=== PATIENT | male | born 1950 | race African-American/Black ===

== ENCOUNTER 2020-05-10 15:29 | IRF | payer MEDICARE, SELFPAY ==
[2020-05-10 15:30] VITALS: BP 135/77; PULSE 98; RESP 20; TEMP 36.6; O2SAT 96; BMI 20.9
--- NOTE | 2020-05-10 15:44 | ADMGEN ---
This patient, Taz Alicia, was admitted to [facility] Room 220-02 at 1530 via ambulance. Patient/family oriented to hospital policies and general routines including ID bracelet, bed and alarms, visiting hours, pain management, procedures, bathroom and other care routines, personal items, smoking policy, room service/diet, and visiting hours. Valuables list has been completed. Information on how to activate the Rapid Response Team has been discussed. Patient/Family are encouraged to report perceived risks to care and to ask questions if they do not understand what they are told or what they should do.
[2020-05-10 16:31] VITALS: BMI 20.9
[2020-05-10] MEDS: hydrALAZINE HCL 50 MG TABLET PO (17:48)
[2020-05-10] MEDS: FLUTICASONE PROP 110 MCG INHALER 12 GM (*SP) 2 PUFF INHALATION (18:33)
[2020-05-10 18:34] VITALS: O2SAT 99
[2020-05-10] MEDS: ALBUTEROL SULFATE (*SP) AEROSOL 1 PUFF 2 PUFF INHALATION (18:34)
[2020-05-10] MEDS: DOCUSATE SODIUM 100 MG CAPSULE PO (20:56)
[2020-05-10] MEDS: levETIRAcetam 500 MG TABLET 1000 MG PO (20:56)
[2020-05-10] MEDS: risperiDONE 0.5 MG TABLET PO (20:57)
[2020-05-10] MEDS: SIMVASTATIN 20 MG TABLET 40 MG PO (20:57)
[2020-05-10] MEDS: BRIMONIDINE TARTRATE 0.2% OP SOLN 5 ML BTL 2 DROP EACH EYE (20:58)
[2020-05-10] MEDS: MEGESTROL ACETATE (*CHEMO) 40 MG TABLET PO (20:59)
[2020-05-10] MEDS: PHENYTOIN SODIUM 100 MG CAP PO (21:00)
[2020-05-10] MEDS: GABAPENTIN 300 MG CAPSULE PO (21:00)
[2020-05-10 22:00] VITALS: BP 120/72; PULSE 96; RESP 17; TEMP 36.8; O2SAT 99
[2020-05-11 04:38] LABS: Basophils Absolute Auto 0.1 K/mm3 (0.0-0.1); Eosinophils Absolute Auto 0.2 K/mm3 (0-0.3); Eosinophils Percent Auto 3.6 % (0-4.4); Hematocrit 31.8 % (42.0-52.0); Hemoglobin 9.8 g/dL (14.0-18.0); Immature Granulocyte Absolute 0.02 K/mm3 (0.00-0.031); Immature Granulocyte Percent A 0.4 % (0-0.5); Lymphocytes Absolute Auto 1.72 K/mm3 (0.9-3.2); Lymphocytes Percent Auto 36.1 % (18.3-44.2); Mean Corpuscular HGB Conc 30.8 g/dl (32-36); Mean Corpuscular Hemoglobin 28.3 pg (26-34); Mean Corpuscular Volume 91.9 fl (80-100); Mean Platelet Volume 9.9 fl (7.4-10.4); Monocytes Absolute Auto 0.9 K/mm3 (0.1-0.6); Monocytes Percent Auto 19.5 % (2.6-8.5); Neutrophils Absolute Auto 1.9 K/mm3 (1.3-6.7); Neutrophils Percent Auto 39.4 % (45.5-73.1); Platelet Count Result 254 k/mm3 (150-375); Red Blood Count 3.46 M/mm3 (4.6-6.20); Red Cell Distribution Width 15.7 % (11.5-14.5); White Blood Count 4.8 K/mm3 (4.5-10.0)
[2020-05-11 05:04] LABS: Anion Gap 8.9 mmol/L (7-16); Blood Urea Nitrogen 16 mg/dL (9-20); Calcium 9.1 mg/dL (8.4-10.2); Carbon Dioxide 28 mmol/L (22-30); Chloride 104 mmol/L (98-107); Estimated CRCL calculation 76 ml/min; Estimated Glomerular Filt Rate > 60; Glucose 102 mg/dL (75-110); Potassium 3.9 mmol/L (3.4-5.0); Sodium 137 mmol/L (137-145)
[2020-05-11] MEDS: PHENYTOIN SODIUM 100 MG CAP PO ×3 (05:26→21:05)
[2020-05-11] MEDS: GABAPENTIN 300 MG CAPSULE PO ×3 (05:26→21:05)
[2020-05-11] MEDS: BRIMONIDINE TARTRATE 0.2% OP SOLN 5 ML BTL 2 DROP EACH EYE ×3 (05:26→21:06)
[2020-05-11 06:00] VITALS: BP 147/73; PULSE 96; RESP 18; TEMP 36.4; O2SAT 100
[2020-05-11] MEDS: ALBUTEROL SULFATE (*SP) AEROSOL 1 PUFF 2 PUFF INHALATION ×3 (07:27→21:30)
[2020-05-11] MEDS: FLUTICASONE PROP 110 MCG INHALER 12 GM (*SP) 2 PUFF INHALATION ×2 (07:27→21:30)
[2020-05-11 07:28] VITALS: PULSE 107; RESP 20; O2SAT 96
--- NOTE | 2020-05-11 10:15 | PCOTNOTE ---
Initiated OT evaluation, but unable to complete entirely at this time. Will complete later today.
[2020-05-11] MEDS: hydrALAZINE HCL 50 MG TABLET PO ×2 (10:16→17:34)
[2020-05-11] MEDS: FINASTERIDE 5 MG TABLET PO (10:16)
[2020-05-11] MEDS: FOLIC ACID 1 MG TABLET PO (10:17)
[2020-05-11] MEDS: hydroCHLOROthiazide 12.5 MG CAPSULE PO (10:17)
[2020-05-11] MEDS: levETIRAcetam 500 MG TABLET 1000 MG PO ×2 (10:17→21:05)
[2020-05-11] MEDS: LOSARTAN POTASSIUM 100 MG TABLET PO (10:18)
[2020-05-11] MEDS: MEGESTROL ACETATE (*CHEMO) 40 MG TABLET PO ×2 (10:18→21:05)
[2020-05-11] MEDS: risperiDONE 0.5 MG TABLET PO ×2 (10:18→21:05)
[2020-05-11] MEDS: TAMSULOSIN HCL 0.4 MG CAPSULE PO (10:18)
--- NOTE | 2020-05-11 11:30 | WPDREHABHP ---
H&P: HPI History of Present Illness Date/Time: 05/11/20 14:18 Chief complaint: Critical Illness Myopathy Narrative: Taz Alicia is a 69 year old male HISTORY OF PRESENT ILLNESS: he is left handed The patient's primary rehab impairment category is 0 6-neurological condition. The etiologic diagnosis is Critical illness myopathy of severe degree I saw this patient [id number] on May 11, 2020 at 11:30 a.m. The patient is a 69-year-old left-handed male with a past medical history of hypertension, hyperlipidemia, atrial fibrillation, and stage IV chronic obstructive pulmonary disease who initially presented to [facility] on April 11, 2020 after slipping and falling out of the bed. Patient denied any loss of consciousness. The evaluation revealed the left femoral neck fracture. He was admitted and orthopedic surgery was consulted. The patient underwent a left proximal femur hemiarthroplasty on April 12, 2020. Postoperatively the patient experienced acute respiratory failure, worsening mental status, leukocytosis, acute renal failure, hypernatremia, pneumonia and the postoperative ileus with worsening abdominal Distension. The patient was moved to ICU for 7 days and was on a ventilator for 3 days. Gastroenterology was consulted and ordered a CT of the head and CT of the abdomen with IV contrast. An NG tube was placed, repeat CT showed a persistent ileus and the patient's white count started to raise. The patient was placed on antibiotics. The ileus eventually converted to a small-bowel obstruction and general surgery was consulted. The patient underwent exploratory laparotomy on April 19, 2020 with lysis of adhesions. He was placed on TPN and his diet was advanced slowly. He is now tolerating a regular diet with oral liquid supplements. Pulmonology was consulted for acute respiratory failure in the setting of stage IV COPD. The patient is currently saturating at 95% on 2 liters of nasal cannula and is on duo nebulizer treatment every 6 hours. Incentive spirometry every hour while awake. He completed IV antibiotics for pneumonia and it is resolved. He is stable from a pulmonology standpoint. Nephrology was consulted for the acute renal failure and that was resolved on May 04, 2020. The patient has been slow to recover from his critical illness but is making progress and will require significant PT OT and speech and language evaluation to return to prior level of independent functioning. His mental status has continued to improve when is now alert and awake x3 the patient will be discharged to rehab on Lovenox for DVT prophylaxis. The patient has not traveled outside the [place] or had contact with someone who is ill that has travel outside the [place] in the past 21 days. The patient has not traveled to with an area of the [place] that is experiencing no transmission of the Coronavirus and has not had close personal contact with anyone that has. The patient does not have a fever. The patient is not experiencing any new lower respiratory illness symptoms. The patient has COPD at baseline and gets breathing treatment twice a day at home. Therapy was initiated at the acute care facility and the patient transferred to us from [facility] on May 10, 2020 on FALLS OR SURGERIES: The patient has had major surgeries in the 100 days prior to admission. They had falls in the past year. They had falls with injury in the past year. PAST MEDICAL HISTORY: [id number], atrial fibrillation, hyperlipidemia, hypertension, chronic obstructive pulmonary disease, stroke with residual left-sided weakness, seizures since 2007, anxiety PAST SURGICAL HISTORY: recent hip surgery during this acute hospitalization in early part of April SOCIAL HISTORY: the patient lives with the family in a 3 story home with finished basement. This bathroom on the main floor only. There are 2 steps to enter the house and 8 steps to the
[2020-05-11 12:56] VITALS: BMI 20.9
--- NOTE | 2020-05-11 13:31 | PCOTNOTE ---
Attempted to complete OT evaluation, but patient requesting therapist to come back later due to fatigue. Will attempt again later.
--- NOTE | 2020-05-11 13:56 | PCCCNOTE ---
On 05/11/20, the student, [John Suero ], provided care and completed [facility] documentation on this patient. I have reviewed the student's documentation and agree with the findings.
[2020-05-11 14:00] VITALS: BP 109/68; PULSE 108; RESP 20; TEMP 36.6; O2SAT 98
[2020-05-11] MEDS: THIAMINE HCL 100 MG TABLET PO (14:52)
[2020-05-11] MEDS: ENOXAPARIN 40 MG/0.4 ML SYRINGE SUB-Q (15:41)
--- NOTE | 2020-05-11 17:27 | RPD ---
INDIVIDUALIZED PLAN OF CARE FOR Taz Alicia Brief Synthesis of Pre-Admission Screen, Post-Admission Evaluation and Therapy Evaluations: The patient presents to rehab with Critical illness myopathy. Comorbidities include left hip fracture status post hemiarthroplasty, postoperative ileus, small bowel obstruction, status post exploratory lapartotomy with lysis of adhesions, leukocytosis, acute respiratory failure requiring mechanical ventilation, chronic obstructive pulmonary disease with exacerbation, nausea, vomiting, seizure disorder, uncontrolled hypertension, hypernatremia, acute renal failure, and pneumonia. The complexity of the patient's medical management, nursing, and therapy needs require an inpatient rehab hospital stay with a physician-led interdisciplinary team approach. The patient?s needs will be best met in an intensive program vs. at a lower level of care. The patient requires physician services for medical oversight, management of post-op complications of SBO, postoperative ileus, leukocytosis, pneumonia, hypernatremia, uncontrolled hypertension, acute mental status changes, acute respiratory failure, COPD exacerbation, and acute renal failure in setting of present comorbidities, and pain management. The patient requires nursing services for anticoagulation therapy, DVT prophylactics, infection protection, medication management and education, pressure relief, and wound care. Deficits include:ADLs, Balance, Cognition, Endurance, Family Training/Education, Mobility, Pain Management, ROM, Safety, Strength, Transfers, and Speech. Salad Bar Clerk/Case Management for: Discharge Planning and Patient/Family Counseling Physical Therapy: 5 days per week for 75 minutes. Treatments may include: Therapeutic Exercise, Gait Training, Neuromuscular Re-education, Transfer Training, Community Reintegration, Bed Mobility, Patient/Family Education, Wheelchair Mobility Group Therapy/Concurrent Therapy Rationales: -Improve attention span during functional activities in a distracted environment. -Enhance problem solving and/or adequate judgment skills during functional activities in a distracted environment. -Promote increased safety awareness in a distracted environment to reduce fall risk with functional tasks, transfers, and ambulation to allow a more safe, self-sufficient return to the home environment. -Improve dynamic balance skills to promote safety and independence with functional activities in a distracted environment for maximum gain. Occupational Therapy: 5 days per week for 75 minutes. Treatments may include: Therapeutic Exercise, Therapeutic Activity, Cognitive Training, Self-Care Transfer Training, Community Reintegration, Home Management, Patient/Family Education, Wheelchair Mobility Training, Energy Conservation Training Group Therapy/Concurrent Therapy Rationales: -Allow therapist to observe and teach generalization and carry-over of skills learned in individual therapy. -Enhance problem solving and sequencing skills during therapeutic activities in a distracted environment. -Promote increased safety awareness in a realistic setting to reduce fall risk with functional tasks due to visual and verbal distractions. -Increase functional level with ADLs, ADL transfers and use of adaptive equipment through therapeutic activities with others while promoting safety to allow a more safe, self-sufficient return home. Speech Therapy: 5 days per week for 30 minutes. Treatments may include: Dysphasia Therapy, Speech/Language/Communication Therapy, Cognitive Training, Patient/Family Education Group Therapy/Concurrent Therapy - Rationale: -Allow therapist to observe and teach generalization and carry-over of skills learned in individual therapy. -Improve comprehension skills with complex or abstract ideas through discussion in a realistic setting. -Enhance problem solving skills with complex issues during activities in a distracted environment. -Promote increased me
[2020-05-11] MEDS: DOCUSATE SODIUM 100 MG CAPSULE PO (21:05)
[2020-05-11] MEDS: SIMVASTATIN 20 MG TABLET 40 MG PO (21:05)
[2020-05-11 21:34] VITALS: O2SAT 98
[2020-05-11 21:39] VITALS: BP 103/55; PULSE 107; RESP 18; TEMP 36.1; O2SAT 100
[2020-05-11 22:26] VITALS: O2SAT 96
[2020-05-12] VITALS (9 sets, daily range): BP systolic 91–116; BP diastolic 54–63; PULSE 105–117; RESP 18–24; TEMP 36.4–36.7; O2SAT 93–98
[2020-05-12] MEDS: ALBUTEROL SULFATE (*SP) AEROSOL 1 PUFF 2 PUFF INHALATION ×2 (01:16→08:48)
[2020-05-12] MEDS: PHENYTOIN SODIUM 100 MG CAP PO ×3 (05:50→21:03)
[2020-05-12] MEDS: GABAPENTIN 300 MG CAPSULE PO ×3 (05:54→21:03)
[2020-05-12] MEDS: BRIMONIDINE TARTRATE 0.2% OP SOLN 5 ML BTL 2 DROP EACH EYE ×3 (05:54→21:01)
[2020-05-12] MEDS: TAMSULOSIN HCL 0.4 MG CAPSULE PO (08:14)
[2020-05-12] MEDS: ENOXAPARIN 40 MG/0.4 ML SYRINGE SUB-Q (08:14)
[2020-05-12] MEDS: levETIRAcetam 500 MG TABLET 1000 MG PO ×2 (08:15→21:03)
[2020-05-12] MEDS: FOLIC ACID 1 MG TABLET PO (08:15)
[2020-05-12] MEDS: FINASTERIDE 5 MG TABLET PO (08:15)
[2020-05-12] MEDS: LOSARTAN POTASSIUM 100 MG TABLET PO (08:15)
[2020-05-12] MEDS: hydroCHLOROthiazide 12.5 MG CAPSULE PO (08:15)
[2020-05-12] MEDS: hydrALAZINE HCL 50 MG TABLET PO ×2 (08:15→17:30)
[2020-05-12] MEDS: MEGESTROL ACETATE (*CHEMO) 40 MG TABLET PO ×2 (08:16→21:03)
[2020-05-12] MEDS: THIAMINE HCL 100 MG TABLET PO (08:16)
[2020-05-12] MEDS: risperiDONE 0.5 MG TABLET PO ×2 (08:16→21:03)
[2020-05-12] MEDS: FLUTICASONE PROP 110 MCG INHALER 12 GM (*SP) 2 PUFF INHALATION ×2 (08:30→20:40)
[2020-05-12] MEDS: ALBUTEROL SULFATE NEB 2.5 MG/0.5 ML INH INHALATION ×2 (13:57→20:40)
[2020-05-12] MEDS: IPRATROPIUM BR 0.02% INH SOLN 0.5 MG/2.5 ML VIAL INHALATION (20:40)
[2020-05-12] MEDS: DOCUSATE SODIUM 100 MG CAPSULE PO (21:03)
[2020-05-12] MEDS: SIMVASTATIN 20 MG TABLET 40 MG PO (21:04)
[2020-05-13] VITALS (12 sets, daily range): BP systolic 86–102; BP diastolic 50–68; PULSE 95–110; RESP 18–22; TEMP 35.9–36.6; O2SAT 94–100
[2020-05-13] MEDS: IPRATROPIUM BR 0.02% INH SOLN 0.5 MG/2.5 ML VIAL INHALATION ×3 (02:58→13:51)
[2020-05-13] MEDS: ALBUTEROL SULFATE NEB 2.5 MG/0.5 ML INH INHALATION ×4 (02:58→20:27)
[2020-05-13] MEDS: GABAPENTIN 300 MG CAPSULE PO ×3 (05:31→20:32)
[2020-05-13] MEDS: PHENYTOIN SODIUM 100 MG CAP PO ×3 (05:31→20:32)
[2020-05-13] MEDS: BRIMONIDINE TARTRATE 0.2% OP SOLN 5 ML BTL 2 DROP EACH EYE ×3 (05:31→20:33)
[2020-05-13] MEDS: FLUTICASONE PROP 110 MCG INHALER 12 GM (*SP) 2 PUFF INHALATION ×2 (08:00→20:27)
[2020-05-13] MEDS: FOLIC ACID 1 MG TABLET PO (10:04)
[2020-05-13] MEDS: THIAMINE HCL 100 MG TABLET PO (10:04)
[2020-05-13] MEDS: hydrALAZINE HCL 50 MG TABLET PO (10:04)
[2020-05-13] MEDS: levETIRAcetam 500 MG TABLET 1000 MG PO ×2 (10:04→20:31)
[2020-05-13] MEDS: risperiDONE 0.5 MG TABLET PO ×2 (10:04→20:32)
[2020-05-13] MEDS: TAMSULOSIN HCL 0.4 MG CAPSULE PO (10:04)
[2020-05-13] MEDS: ENOXAPARIN 40 MG/0.4 ML SYRINGE SUB-Q (10:05)
[2020-05-13] MEDS: MEGESTROL ACETATE (*CHEMO) 40 MG TABLET PO ×2 (10:05→20:32)
[2020-05-13] MEDS: hydroCHLOROthiazide 12.5 MG CAPSULE PO (10:05)
[2020-05-13] MEDS: FINASTERIDE 5 MG TABLET PO (10:06)
[2020-05-13] MEDS: LOSARTAN POTASSIUM 100 MG TABLET PO (10:06)
--- NOTE | 2020-05-13 15:46 | PC.NURSE ---
Dr. De León is aware of B/P being low and advised to hold apresoline at dinnertime.
[2020-05-13] MEDS: DOCUSATE SODIUM 100 MG CAPSULE PO (20:31)
[2020-05-13] MEDS: SIMVASTATIN 20 MG TABLET 40 MG PO (20:31)
[2020-05-14] VITALS (14 sets, daily range): BP systolic 90–110; BP diastolic 54–65; PULSE 88–107; RESP 18–20; TEMP 36.2–37; O2SAT 91–100
[2020-05-14] MEDS: ALBUTEROL SULFATE NEB 2.5 MG/0.5 ML INH INHALATION ×4 (02:16→19:38)
[2020-05-14] MEDS: BRIMONIDINE TARTRATE 0.2% OP SOLN 5 ML BTL 2 DROP EACH EYE ×3 (05:58→21:06)
[2020-05-14] MEDS: GABAPENTIN 300 MG CAPSULE PO ×3 (05:59→21:07)
[2020-05-14] MEDS: PHENYTOIN SODIUM 100 MG CAP PO ×3 (05:59→21:07)
[2020-05-14] MEDS: levETIRAcetam 500 MG TABLET 1000 MG PO ×2 (08:48→21:07)
[2020-05-14] MEDS: MEGESTROL ACETATE (*CHEMO) 40 MG TABLET PO ×2 (08:48→21:07)
[2020-05-14] MEDS: FINASTERIDE 5 MG TABLET PO (08:48)
[2020-05-14] MEDS: FOLIC ACID 1 MG TABLET PO (08:48)
[2020-05-14] MEDS: ENOXAPARIN 40 MG/0.4 ML SYRINGE SUB-Q (08:48)
[2020-05-14] MEDS: LOSARTAN POTASSIUM 100 MG TABLET PO (08:48)
[2020-05-14] MEDS: hydroCHLOROthiazide 12.5 MG CAPSULE PO (08:49)
[2020-05-14] MEDS: risperiDONE 0.5 MG TABLET PO ×2 (08:49→21:07)
[2020-05-14] MEDS: hydrALAZINE HCL 50 MG TABLET PO ×2 (08:49→17:52)
[2020-05-14] MEDS: THIAMINE HCL 100 MG TABLET PO (08:50)
[2020-05-14] MEDS: TAMSULOSIN HCL 0.4 MG CAPSULE PO (08:50)
--- NOTE | 2020-05-14 11:08 | WPDNEURORHBP ---
Subjective Date/time seen: 05/13 11 am amairani Grubbs severe degree Review of Systems Review of Systems: All systems reviewed & are unremarkable except as noted in HPI and below Functional Status Ambulation Ability Ability to Ambulate 10 Feet: Minimum Assistance X 1 Ambulation Assistive Devices: Walker, Wheeled Transfers Ability Ability to Transfer In/Out of Chair: Maximum Assistance X 1 Exam Const: General: cooperative and no acute distress HENMT: Head: normal to inspection and normocephalic Ears: hearing grossly normal bilaterally and external ears normal General nose exam: Normal external nose present, Normal nares present, Normal nasal mucous membranes and turbinates present and No nasal discharge present Face and sinus: normal facial exam Mouth: Yes Normal oral and palatal mucosa present Eyes: General: appearance normal, both eyes and all related structures Neck: Neck: full ROM and no JVD Thyroid: thyroid normal Resp: Effort & Inspection: normal respiratory effort Auscultation: clear to auscultation bilaterally Cardio: Rate: regular rate Rhythm: regular rhythm GI: Auscultation: normal bowel sounds Back/Spine/Pelvis: Back: no CVA tenderness Skin: General skin exam: no rashes or lesions noted Neuro: General: patient oriented x3, moves all extremities and CN's II-XI intact bilaterally Cranial nerves: Yes Equal, round and reactive pupils present, Yes Bilaterally intact EOM present, Yes Nystagmus not present, Yes Midline tongue present and Yes Ability to bilaterally elevate shoulders present Cognition (Neuro): normal cognition Speech: normal speech Motor exam (neuro): Abnormal motor strength present (proximal weekness > distal) Deep tendon reflexes (DTR's): Right triceps reflex intensity grade: 1+, Left triceps reflex intensity grade: 1+, Rt Biceps (C5, C6): 1+, Left biceps reflex intensity grade: 1+, Right brachioradialis reflex intensity grade: 1+, Left brachioradialis reflex intensity grade: 1+, Right patellar reflex intensity grade: 1+, Left patellar reflex intensity grade: 1+, Right ankle reflex intensity grade: 1+ and Left ankle reflex intensity grade: 1+ Plantar Reflex Responses: downgoing: bilateral Extrem: General: normal to inspection Psych: Appearance: grossly normal Objective Data Vital Signs Vital Signs: Vital Signs - 24 hr 05/13/20 13:52 05/13/20 13:59 05/13/20 14:00 Temperature 36.6 C Pulse Rate 95 96 108 H Respiratory Rate 20 20 20 Blood Pressure 86/56 L Pulse Oximetry 100 05/13/20 20:20 05/13/20 20:27 05/13/20 20:37 Temperature 36.6 C Pulse Rate 99 104 H 100 Respiratory Rate 18 18 18 Blood Pressure 91/50 L Pulse Oximetry 100 94 05/14/20 02:16 05/14/20 02:25 05/14/20 06:00 Temperature 37.0 C Pulse Rate 88 92 93 Respiratory Rate 18 18 18 Blood Pressure 110/58 L Pulse Oximetry 100 05/14/20 09:37 05/14/20 09:42 05/14/20 09:50 Temperature Pulse Rate 93 90 Respiratory Rate 20 20 Blood Pressure Pulse Oximetry 91 Intake/Output Intake/Output: Intake & Output 05/11/20 05/12/20 05/13/20 05/14/20 23:59 23:59 23:59 23:59 Intake Total 480 960 840 240 Balance 480 960 840 240 Meds/Results Medications: Active Medications Generic Name Dose Route Start Last Admin Trade Name Freq PRN Reason Stop Dose Admin Albuterol 2 puff 05/10/20 17:09 05/12/20 08:48 Proventil Hfa INHALATION 2 puff BID PRN Administration Shortness Of Breath Or Wheezing Albuterol 2.5 mg 05/12/20 14:00 05/14/20 09:37 Albuterol Sulf Neb 2.5mg/0.5ml INHALATION 2.5 mg Q6HRT HOWIE Administration Brimonidine Tartrate 2 drop 05/10/20 22:00 05/14/20 05:58 Alphagan 0.2% Op Soln EACH EYE 2 drop Q8HR HOWEI Administration Docusate Sodium 100 mg 05/10/20 21:00 05/13/20 20:31 Colace Capsule PO 100 mg HS HOWIE Administration Enoxaparin Sodium 40 mg 05/12/20 09:00 05/14/20 08:48 Lovenox SUB-Q 40 mg DAILY HOWIE Administration F
[2020-05-14] MEDS: FLUTICASONE PROP 110 MCG INHALER 12 GM (*SP) 2 PUFF INHALATION (19:43)
[2020-05-14] MEDS: SIMVASTATIN 20 MG TABLET 40 MG PO (21:07)
[2020-05-14] MEDS: DOCUSATE SODIUM 100 MG CAPSULE PO (21:07)
[2020-05-15] VITALS (9 sets, daily range): BP systolic 100–133; BP diastolic 63–79; PULSE 92–114; RESP 18–20; TEMP 35.5–36.9; O2SAT 92–100
[2020-05-15] MEDS: ALBUTEROL SULFATE NEB 2.5 MG/0.5 ML INH INHALATION ×3 (01:14→20:13)
[2020-05-15] MEDS: PHENYTOIN SODIUM 100 MG CAP PO ×3 (06:24→21:05)
[2020-05-15] MEDS: GABAPENTIN 300 MG CAPSULE PO ×3 (06:24→21:05)
[2020-05-15] MEDS: BRIMONIDINE TARTRATE 0.2% OP SOLN 5 ML BTL 2 DROP EACH EYE ×3 (06:24→21:05)
[2020-05-15] MEDS: SENNA/DOCUSATE SODIUM TABLET 2 TAB PO ×2 (09:50→21:05)
[2020-05-15] MEDS: hydrALAZINE HCL 50 MG TABLET PO ×2 (09:50→17:24)
[2020-05-15] MEDS: FINASTERIDE 5 MG TABLET PO (09:51)
[2020-05-15] MEDS: hydroCHLOROthiazide 12.5 MG CAPSULE PO (09:51)
[2020-05-15] MEDS: ENOXAPARIN 40 MG/0.4 ML SYRINGE SUB-Q (09:51)
[2020-05-15] MEDS: levETIRAcetam 500 MG TABLET 1000 MG PO ×2 (09:51→21:05)
[2020-05-15] MEDS: FOLIC ACID 1 MG TABLET PO (09:51)
[2020-05-15] MEDS: risperiDONE 0.5 MG TABLET PO ×2 (09:52→21:05)
[2020-05-15] MEDS: THIAMINE HCL 100 MG TABLET PO (09:52)
[2020-05-15] MEDS: TAMSULOSIN HCL 0.4 MG CAPSULE PO (09:52)
[2020-05-15] MEDS: LOSARTAN POTASSIUM 100 MG TABLET PO (09:52)
[2020-05-15] MEDS: MEGESTROL ACETATE (*CHEMO) 40 MG TABLET PO ×2 (09:52→21:05)
--- NOTE | 2020-05-15 12:15 | WPDNEURORHBP ---
Subjective Date/time seen: 05/15/20 12:15 Interval history: this 69-year-old gentleman is here because of rather prolonged course followed by critical illness myopathy is blood pressure is running little bit soft medication have been adjusted the daughter Molly was available on the telephone questions were answered patient denies any headache nausea vomiting chest pain shortness of breath fever chills sore throat he certainly is making progress in the rehab Review of Systems Review of Systems: All systems reviewed & are unremarkable except as noted in HPI and below Functional Status Ambulation Ability Ability to Ambulate 10 Feet: Minimum Assistance X 1 Ambulation Assistive Devices: Walker, Wheeled Transfers Ability Ability to Transfer In/Out of Chair: Maximum Assistance X 1 Exam Const: General: comfortable and no acute distress Eyes: General: appearance normal, both eyes and all related structures Neck: Neck: supple and no JVD Resp: Effort & Inspection: normal respiratory effort Auscultation: clear to auscultation bilaterally Cardio: Rate: regular rate Rhythm: regular rhythm GI: GI Palp: Yes Soft to palpation Auscultation: normal bowel sounds Skin: General skin exam: normal color and no rashes or lesions noted Neuro: Other: patient is awake and alert with mild short-term memory deficit and generalized weakness proximal more than distal which is slowly improving Extrem: General: normal to inspection Psych: Mental Status: mental status grossly normal Other: mild short-term memory deficit Objective Data Vital Signs Vital Signs: Vital Signs - 24 hr 05/14/20 14:00 05/14/20 15:13 05/14/20 15:20 Temperature 36.6 C Pulse Rate 106 H 88 92 Respiratory Rate 18 20 20 Blood Pressure 95/65 L Pulse Oximetry 100 05/14/20 19:40 05/14/20 19:47 05/14/20 19:55 Temperature Pulse Rate 105 H 105 H 105 H Respiratory Rate 20 20 20 Blood Pressure Pulse Oximetry 94 05/14/20 21:42 05/15/20 01:17 05/15/20 01:26 Temperature 36.2 C L Pulse Rate 107 H 105 H 105 H Respiratory Rate 18 20 18 Blood Pressure 90/54 L Pulse Oximetry 98 05/15/20 06:00 Temperature 35.5 C L Pulse Rate 104 H Respiratory Rate 18 Blood Pressure 100/63 Pulse Oximetry 99 Intake/Output Intake/Output: Intake & Output 08/01/20 05/13/20 05/14/20 05/15/20 23:59 23:59 23:59 23:59 Intake Total 960 840 720 240 Balance 960 840 720 240 Meds/Results Medications: Active Medications Generic Name Dose Route Start Last Admin Trade Name Freq PRN Reason Stop Dose Admin Albuterol 2 puff 05/10/20 17:09 05/12/20 08:48 Proventil Hfa INHALATION 2 puff BID PRN Administration Shortness Of Breath Or Wheezing Albuterol 2.5 mg 05/12/20 14:00 05/15/20 10:38 Albuterol Sulf Neb 2.5mg/0.5ml INHALATION Not Given Q6HRT HOWIE Brimonidine Tartrate 2 drop 05/10/20 22:00 05/15/20 06:24 Alphagan 0.2% Op Soln EACH EYE 2 drop Q8HR HOWIE Administration Enoxaparin Sodium 40 mg 05/12/20 09:00 05/15/20 09:51 Lovenox SUB-Q 40 mg DAILY HOWIE Administration Finasteride 5 mg 05/11/20 09:00 05/15/20 09:51 Proscar PO 5 mg DAILY HOWIE Administration Fluticasone Propionate 2 puff 05/10/20 20:00 05/15/20 10:38 Flovent INHALATION Not Given Q12HRT HOWIE Folic Acid 1 mg 05/11/20 09:00 05/15/20 09:51 Folic Acid PO 1 mg DAILY HOWIE Administration Gabapentin 300 mg 05/10/20 22:00 05/15/20 06:24 Neurontin PO 300 mg Q8HR HOWIE Administration Hydralazine HCl 50 mg 05/10/20 17:00 05/15/20 09:50 Apresoline Tablet PO 50 mg BIDWM HOWIE Administration Hydrochlorothiazide 12.5 mg 05/11/20 09:00 05/15/20 09:51 Hydrochlorothiazide PO 12.5 mg QAM HOWIE Administration Ipratropium Capulin 0.5 mg 05/12/20 03:14 05/13/20 13:51 Atrovent Neb INHALATION 0.5 mg Q6H PRN Administration SOB/WHEEZING Levetiracetam 1,000 mg 05/10/20 21:00 05/15/20 09:51
--- NOTE | 2020-05-15 13:34 | PCNFU ---
Nutrition Follow-Up Complete: Involuntary weight loss related to multiple medical issues/previous hospitalization with associated poor appetite as evidenced by reported weight loss of uncertain amount. Goal: Patient to consume 75% of meals/supplements or greater. Patient is progressing towards goal at 72% average meal consumption. Pt current nutrition is regular. Nutrition recommendation: Agree with current recommendations. Recommend continuing Ensure Enlive BID. Last recorded weight is 64.3 kg. Bowel Motility: last bowel movement on 05/10/20 Labs Reviewed: No recent labs. Recommend obtaining new lab values Meds Noted: albuterol, vitamin B-12, Vitamin B-1, folic acid, lovenox, senokot, zocar, Hydrochlorothiazide, Megace, Dilantin, Thiamine Additional Notes: Patient reports good appetite and enjoys Ensure Enlive. Patient would like sugar and salt packets sent with each meal to give food more flavor. Diet office has been contacted. Follow up every 7 days.
--- NOTE | 2020-05-15 14:05 | PCNSR ---
On 05/15/20, the student,Aaron Marmolejo, provided care and completed [facility] documentation on this patient. I have reviewed the student's documentation and agree with the findings.
[2020-05-15] MEDS: IPRATROPIUM BR 0.02% INH SOLN 0.5 MG/2.5 ML VIAL INHALATION (14:41)
[2020-05-15] MEDS: FLUTICASONE PROP 110 MCG INHALER 12 GM (*SP) 2 PUFF INHALATION (20:16)
[2020-05-15] MEDS: SIMVASTATIN 20 MG TABLET 40 MG PO (21:05)
[2020-05-16] VITALS (12 sets, daily range): BP systolic 109–113; BP diastolic 62–65; PULSE 63–106; RESP 16–24; TEMP 36.1–36.8; O2SAT 96–100
[2020-05-16] MEDS: ALBUTEROL SULFATE NEB 2.5 MG/0.5 ML INH INHALATION ×4 (03:32→20:45)
[2020-05-16] MEDS: BRIMONIDINE TARTRATE 0.2% OP SOLN 5 ML BTL 2 DROP EACH EYE ×3 (05:36→21:39)
[2020-05-16] MEDS: GABAPENTIN 300 MG CAPSULE PO ×3 (05:36→21:39)
[2020-05-16] MEDS: PHENYTOIN SODIUM 100 MG CAP PO ×3 (05:36→21:39)
[2020-05-16] MEDS: hydrALAZINE HCL 50 MG TABLET PO ×2 (07:44→17:15)
[2020-05-16] MEDS: FLUTICASONE PROP 110 MCG INHALER 12 GM (*SP) 2 PUFF INHALATION ×2 (08:00→20:45)
[2020-05-16] MEDS: FOLIC ACID 1 MG TABLET PO (09:57)
[2020-05-16] MEDS: FINASTERIDE 5 MG TABLET PO (09:57)
[2020-05-16] MEDS: SENNA/DOCUSATE SODIUM TABLET 2 TAB PO ×2 (09:57→21:39)
[2020-05-16] MEDS: ENOXAPARIN 40 MG/0.4 ML SYRINGE SUB-Q (09:57)
[2020-05-16] MEDS: hydroCHLOROthiazide 12.5 MG CAPSULE PO (09:58)
[2020-05-16] MEDS: risperiDONE 0.5 MG TABLET PO ×2 (09:58→21:39)
[2020-05-16] MEDS: levETIRAcetam 500 MG TABLET 1000 MG PO ×2 (09:58→21:39)
[2020-05-16] MEDS: LOSARTAN POTASSIUM 100 MG TABLET PO (09:58)
[2020-05-16] MEDS: MEGESTROL ACETATE (*CHEMO) 40 MG TABLET PO ×2 (09:58→21:39)
[2020-05-16] MEDS: THIAMINE HCL 100 MG TABLET PO (09:59)
[2020-05-16] MEDS: TAMSULOSIN HCL 0.4 MG CAPSULE PO (09:59)
--- NOTE | 2020-05-16 16:49 | WPDNEURORHBP ---
Subjective Date/time seen: 05/16/20 16:49 Interval history: this 69-year-old gentleman is here after having had rather prolonged acute hospitalization which resulted in the critical illness myopathy. This examiner as noted the tremors of Parkinson's is nature and was confirmed by his daughter the bedside that he has had tremor for 6 years and has a shuffling gait and has fallen in the past there may be family history Parkinson's disease The patient the rehab is doing fairly well has made progress but I believe he will benefit from the use of the carbidopa levodopa therapy and I will start him on the low-dose Review of Systems Review of Systems: All systems reviewed & are unremarkable except as noted in HPI and below Functional Status Ambulation Ability Ability to Ambulate 10 Feet: Minimum Assistance X 1 Ability to Ambulate 50 Feet With 2 Turns: Minimum Assistance X 1 Ambulation Assistive Devices: Walker, Wheeled Transfers Ability Ability to Transfer In/Out of Chair: Maximum Assistance X 1 Exam Const: General: comfortable and no acute distress HENMT: General nose exam: Normal nares present Mouth: Yes moist mucous membranes Eyes: General: appearance normal, both eyes and all related structures Neck: Neck: supple and no JVD Resp: Effort & Inspection: normal respiratory effort Auscultation: clear to auscultation bilaterally Cardio: Rate: regular rate Rhythm: regular rhythm GI: GI Palp: Yes Soft to palpation Auscultation: normal bowel sounds Skin: General skin exam: normal color and no rashes or lesions noted Neuro: Other: patient is awake and alert overall mental status is stable Parkinson's tremor is clearly noted with rigidity and bradykinesia more so now since he is mental status is better with the therapy and the ongoing communication with our staff The left hemiparesis remains stable Extrem: General: normal to inspection Psych: Other: idio-[id number] memory deficit Objective Data Vital Signs Vital Signs: Vital Signs - 24 hr 05/15/20 20:13 05/15/20 20:25 05/15/20 20:31 Temperature 36.5 C Pulse Rate 92 96 107 H Respiratory Rate 18 18 18 Blood Pressure 122/79 Pulse Oximetry 92 94 05/16/20 03:32 05/16/20 03:41 05/16/20 05:43 Temperature 36.2 C L Pulse Rate 78 81 96 Respiratory Rate 18 18 18 Blood Pressure 113/65 Pulse Oximetry 100 05/16/20 08:01 05/16/20 08:17 05/16/20 09:35 Temperature Pulse Rate 95 100 98 Respiratory Rate 20 20 Blood Pressure Pulse Oximetry 97 98 05/16/20 14:00 05/16/20 14:32 05/16/20 14:45 Temperature 36.8 C Pulse Rate 63 106 H 106 H Respiratory Rate 16 20 24 H Blood Pressure 109/63 Pulse Oximetry 100 Intake/Output Intake/Output: Intake & Output 05/13/20 05/14/20 05/15/20 05/16/20 23:59 23:59 23:59 23:59 Intake Total 840 720 600 240 Balance 840 720 600 240 Meds/Results Medications: Active Medications Generic Name Dose Route Start Last Admin Trade Name Freq PRN Reason Stop Dose Admin Albuterol 2 puff 05/10/20 17:09 05/12/20 08:48 Proventil Hfa INHALATION 2 puff BID PRN Administration Shortness Of Breath Or Wheezing Albuterol 2.5 mg 05/12/20 14:00 05/16/20 14:30 Albuterol Sulf Neb 2.5mg/0.5ml INHALATION 2.5 mg Q6HRT HOWIE Administration Brimonidine Tartrate 2 drop 05/10/20 22:00 05/16/20 15:00 Alphagan 0.2% Op Soln EACH EYE 2 drop Q8HR HOWIE Administration Enoxaparin Sodium 40 mg 05/12/20 09:00 05/16/20 09:57 Lovenox SUB-Q 40 mg DAILY HOWIE Administration Finasteride 5 mg 05/11/20 09:00 05/16/20 09:57 Proscar PO 5 mg DAILY HOWIE Administration Fluticasone Propionate 2 puff 05/10/20 20:00 05/16/20 08:00 Flovent INHALATION 2 puff Q12HRT HOWIE Administration Folic Acid 1 mg 05/11/20 09:00 05/16/20 09:57 Folic Acid PO 1 mg DAILY HOWIE Administration Gabapentin 300 mg 05/10/20 22:00 05/16/20 15:00 Neurontin PO 300 mg Q8HR HOWIE Adm
[2020-05-16] MEDS: CARBIDOPA/LEVODOPA 10/100 MG TABLET 1 TABLET PO (21:39)
[2020-05-16] MEDS: SIMVASTATIN 20 MG TABLET 40 MG PO (21:39)
[2020-05-17] VITALS (13 sets, daily range): BP systolic 103–112; BP diastolic 58–83; PULSE 85–108; RESP 18–20; TEMP 36.7–37.2; O2SAT 94–100
[2020-05-17] MEDS: ALBUTEROL SULFATE NEB 2.5 MG/0.5 ML INH INHALATION ×4 (03:00→20:29)
[2020-05-17] MEDS: PHENYTOIN SODIUM 100 MG CAP PO ×3 (05:33→20:34)
[2020-05-17] MEDS: CARBIDOPA/LEVODOPA 10/100 MG TABLET 1 TABLET PO ×3 (05:33→20:31)
[2020-05-17] MEDS: GABAPENTIN 300 MG CAPSULE PO ×3 (05:33→20:36)
[2020-05-17] MEDS: BRIMONIDINE TARTRATE 0.2% OP SOLN 5 ML BTL 2 DROP EACH EYE ×3 (05:33→20:37)
[2020-05-17] MEDS: IPRATROPIUM BR 0.02% INH SOLN 0.5 MG/2.5 ML VIAL INHALATION ×2 (07:25→20:29)
[2020-05-17] MEDS: FLUTICASONE PROP 110 MCG INHALER 12 GM (*SP) 2 PUFF INHALATION ×2 (07:26→20:30)
[2020-05-17] MEDS: MEGESTROL ACETATE (*CHEMO) 40 MG TABLET PO ×2 (09:00→20:31)
[2020-05-17] MEDS: TAMSULOSIN HCL 0.4 MG CAPSULE PO (09:00)
[2020-05-17] MEDS: risperiDONE 0.5 MG TABLET PO ×2 (09:00→20:30)
[2020-05-17] MEDS: hydrALAZINE HCL 50 MG TABLET PO ×2 (09:00→17:44)
[2020-05-17] MEDS: ENOXAPARIN 40 MG/0.4 ML SYRINGE SUB-Q (09:01)
[2020-05-17] MEDS: levETIRAcetam 500 MG TABLET 1000 MG PO ×2 (09:01→20:31)
[2020-05-17] MEDS: SENNA/DOCUSATE SODIUM TABLET 2 TAB PO ×2 (09:01→20:31)
[2020-05-17] MEDS: FOLIC ACID 1 MG TABLET PO (09:01)
[2020-05-17] MEDS: hydroCHLOROthiazide 12.5 MG CAPSULE PO (09:01)
[2020-05-17] MEDS: FINASTERIDE 5 MG TABLET PO (09:01)
[2020-05-17] MEDS: THIAMINE HCL 100 MG TABLET PO (09:01)
[2020-05-17] MEDS: LOSARTAN POTASSIUM 100 MG TABLET PO (09:01)
[2020-05-17] MEDS: SIMVASTATIN 20 MG TABLET 40 MG PO (20:33)
[2020-05-18] VITALS (12 sets, daily range): BP systolic 104–128; BP diastolic 54–70; PULSE 100–111; RESP 18–20; TEMP 36.6–37.1; O2SAT 94–100
[2020-05-18] MEDS: IPRATROPIUM BR 0.02% INH SOLN 0.5 MG/2.5 ML VIAL INHALATION ×4 (02:44→21:12)
[2020-05-18] MEDS: ALBUTEROL SULFATE NEB 2.5 MG/0.5 ML INH INHALATION ×4 (02:44→21:12)
[2020-05-18 04:51] LABS: Basophils Absolute Auto 0.1 K/mm3 (0.0-0.1); Basophils Percent Auto 0.6 % (0.2-1.2); Eosinophils Percent Auto 0.4 % (0-4.4); Hematocrit 32.3 % (42.0-52.0); Hemoglobin 10.1 g/dL (14.0-18.0); Immature Granulocyte Absolute 0.02 K/mm3 (0.00-0.031); Immature Granulocyte Percent A 0.2 % (0-0.5); Lymphocytes Absolute Auto 2.27 K/mm3 (0.9-3.2); Lymphocytes Percent Auto 23.7 % (18.3-44.2); Mean Corpuscular HGB Conc 31.3 g/dl (32-36); Mean Corpuscular Hemoglobin 28.1 pg (26-34); Mean Platelet Volume 9.3 fl (7.4-10.4); Monocytes Absolute Auto 1.1 K/mm3 (0.1-0.6); Monocytes Percent Auto 11.8 % (2.6-8.5); Neutrophils Absolute Auto 6.1 K/mm3 (1.3-6.7); Neutrophils Percent Auto 63.3 % (45.5-73.1); Platelet Count Result 246 k/mm3 (150-375); Red Blood Count 3.59 M/mm3 (4.6-6.20); White Blood Count 9.6 K/mm3 (4.5-10.0)
[2020-05-18 05:05] LABS: Blood Urea Nitrogen 19 mg/dL (9-20); Calcium 9.3 mg/dL (8.4-10.2); Carbon Dioxide 31 mmol/L (22-30); Chloride 99 mmol/L (98-107); Estimated CRCL calculation 67 ml/min; Estimated Glomerular Filt Rate > 60; Glucose 98 mg/dL (75-110); Sodium 137 mmol/L (137-145)
[2020-05-18] MEDS: PHENYTOIN SODIUM 100 MG CAP PO ×3 (06:14→20:30)
[2020-05-18] MEDS: BRIMONIDINE TARTRATE 0.2% OP SOLN 5 ML BTL 2 DROP EACH EYE ×3 (06:14→20:32)
[2020-05-18] MEDS: CARBIDOPA/LEVODOPA 10/100 MG TABLET 1 TABLET PO ×3 (06:15→20:30)
[2020-05-18] MEDS: GABAPENTIN 300 MG CAPSULE PO ×3 (06:16→20:30)
[2020-05-18] MEDS: FLUTICASONE PROP 110 MCG INHALER 12 GM (*SP) 2 PUFF INHALATION ×2 (08:01→21:12)
[2020-05-18] MEDS: hydrALAZINE HCL 50 MG TABLET PO ×2 (08:25→17:37)
[2020-05-18] MEDS: SENNA/DOCUSATE SODIUM TABLET 2 TAB PO ×2 (08:26→20:29)
[2020-05-18] MEDS: FINASTERIDE 5 MG TABLET PO (08:26)
[2020-05-18] MEDS: ENOXAPARIN 40 MG/0.4 ML SYRINGE SUB-Q (08:26)
[2020-05-18] MEDS: FOLIC ACID 1 MG TABLET PO (08:26)
[2020-05-18] MEDS: THIAMINE HCL 100 MG TABLET PO (08:27)
[2020-05-18] MEDS: levETIRAcetam 500 MG TABLET 1000 MG PO ×2 (08:27→20:30)
[2020-05-18] MEDS: MEGESTROL ACETATE (*CHEMO) 40 MG TABLET PO ×2 (08:27→20:29)
[2020-05-18] MEDS: LOSARTAN POTASSIUM 100 MG TABLET PO (08:27)
[2020-05-18] MEDS: risperiDONE 0.5 MG TABLET PO ×2 (08:27→20:29)
[2020-05-18] MEDS: TAMSULOSIN HCL 0.4 MG CAPSULE PO (08:27)
[2020-05-18] MEDS: hydroCHLOROthiazide 12.5 MG CAPSULE PO (08:27)
--- NOTE | 2020-05-18 15:03 | PCPTNOTE ---
Taz Alicia was evaluated for a wheeled walker on 05/18/2020 by this physical therapist child care assistant. The wheeled walker will resolve patient's mobility limitations and will be used for ADL's within the home. The patient can safely use the wheeled walker. ?The wheeled walker will resolve the patient?s mobility deficits, including impaired balance and decreased strength.
--- NOTE | 2020-05-18 15:04 | PCPTNOTE ---
Ariadna Lang PTA completed an inpatient rehab wheelchair evaluation on Taz Alicia on 05/18/2020. The patient is unable to safely and independently ambulate household distances due to their current impairments. Their diagnosis is Critical Illness Myopathy and their impairments include decreased strength, decreased endurance, decreased range of motion, decreased balance and lower extremity weakness. Taz's weight bearing status is weight-bearing as tolerated on the bilateral lower legs. The patient demonstrates significant functional mobility limitations that impair their ability to participate in mobility-related activities of daily living (MRADLs), including toileting, feeding, dressing, grooming, and bathing in the customary locations in the home. These limitations cannot be sufficiently resolved by the use of an appropriately fitted cane or walker. It is recommended that the patient utilize a wheelchair for functional mobility within the home in order to facilitate optimal safety, independence and participation in all MRADL's and adequately access their home environment on a regular basis. The patient's home provides adequate access between rooms, maneuvering space, and surfaces to accommodate the recommended wheelchair. The use of a wheelchair for functional mobility is strongly recommended and the patient is receptive to using the wheelchair. The use of this wheelchair will significantly improve the patient's ability to participate in MRADLS and the patient will use it on a regular basis in the home. This will facilitate optimal safety, independence, and participation. The patient has demonstrated sufficient physical and mental capabilities needed to safely propel a manual wheelchair that is provided in the home during a typical day. Recommended Wheelchair Frame: standard Recommended Wheelchair Size: 18x20 patient's anatomical hip width is 16 inches and leg length 18 inches Recommended Wheelchair Cushion:standard Wheelchair Leg Recommendations: bilateral swing away leg rests - Elevating legrests are recommended because the patient has significant edema of the lower extremities that requires an elevating legrest. . -Anti-tippers are recommended due to patient demonstrating increased risk for falls. They would benefit from anti-tippers with added safety and stabilization. Ariadna Hearnenport IMMIGRATION SERVICES OFFICER 05-18-2020 Evaluating Therapist Date I agree with and certify that the above recommendation is medically necessary. Referring Physician Date I agree with and certify that the above recommendation is medically necessary. Referring Physician Date
--- NOTE | 2020-05-18 15:16 | WPDNEURORHBP ---
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 and clearly signs of Parkinson's disease for which I have started him on low-dose Sinemet is tolerating well and making progress quite motivated denies any headache nausea vomiting chest pain shortness of breath fever chills sore throat Review of Systems Review of Systems: All systems reviewed & are unremarkable except as noted in HPI and below Functional Status Ambulation Ability Ability to Ambulate 10 Feet: Contact Guard Ability to Ambulate 50 Feet With 2 Turns: Contact Guard Ambulation Assistive Devices: Walker, Wheeled Transfers Ability Ability to Transfer In/Out of Chair: Minimum Assistance X 1 Exam Const: General: comfortable and no acute distress HENMT: General nose exam: Normal nares present Mouth: Yes moist mucous membranes Eyes: General: appearance normal, both eyes and all related structures Neck: Neck: supple and no JVD Resp: Effort & Inspection: normal respiratory effort Auscultation: clear to auscultation bilaterally Cardio: Rate: regular rate Rhythm: regular rhythm GI: GI Palp: Yes Soft to palpation Auscultation: normal bowel sounds Skin: General skin exam: normal color and no rashes or lesions noted Neuro: Other: patient is awake alert his cognitive function is improving overall neurological improvement in his myopathy is also helping in fact his left side which was use to be weaker is also better Extrem: General: normal to inspection Psych: Mental Status: mental status grossly normal Objective Data Vital Signs Vital Signs: Vital Signs - 24 hr 05/17/20 20:30 05/17/20 20:42 05/17/20 21:10 Temperature Pulse Rate 85 89 89 Respiratory Rate 20 20 18 Blood Pressure Pulse Oximetry 94 05/17/20 22:00 05/18/20 02:44 05/18/20 02:50 Temperature 36.8 C Pulse Rate 108 H 104 H 102 H Respiratory Rate 18 20 20 Blood Pressure 105/58 L Pulse Oximetry 96 05/18/20 06:00 05/18/20 08:01 05/18/20 08:11 Temperature 36.6 C Pulse Rate 103 H 101 H 104 H Respiratory Rate 19 20 20 Blood Pressure 128/70 Pulse Oximetry 94 96 05/18/20 14:00 05/18/20 14:40 05/18/20 14:50 Temperature 36.8 C Pulse Rate 109 H 111 H 108 H Respiratory Rate 18 20 20 Blood Pressure 109/67 Pulse Oximetry 98 Intake/Output Intake/Output: Intake & Output 05/15/20 05/16/20 05/17/20 05/18/20 23:59 23:59 23:59 23:59 Intake Total 600 480 600 360 Balance 600 480 600 360 Meds/Results Medications: Active Medications Generic Name Dose Route Start Last Admin Trade Name Freq PRN Reason Stop Dose Admin Albuterol 2 puff 05/10/20 17:09 05/12/20 08:48 Proventil Hfa INHALATION 2 puff BID PRN Administration Shortness Of Breath Or Wheezing Albuterol 2.5 mg 05/12/20 14:00 05/18/20 14:40 Albuterol Sulf Neb 2.5mg/0.5ml INHALATION 2.5 mg Q6HRT HOWIE Administration Brimonidine Tartrate 2 drop 05/10/20 22:00 05/18/20 13:48 Alphagan 0.2% Op Soln EACH EYE 2 drop Q8HR HOWIE Administration Carbidopa/Levodopa 1 tablet 05/16/20 22:00 05/18/20 13:48 Sinemet 10/100 Mg PO 1 tablet Q8HR HOWIE Administration Enoxaparin Sodium 40 mg 05/12/20 09:00 05/18/20 08:26 Lovenox SUB-Q 40 mg DAILY HOWIE Administration Finasteride 5 mg 05/11/20 09:00 05/18/20 08:26 Proscar PO 5 mg DAILY HOWIE Administration Fluticasone Propionate 2 puff 05/10/20 20:00 05/18/20 08:01 Flovent INHALATION 2 puff Q12HRT HOWIE Administration Folic Acid 1 mg 05/11/20 09:00 05/18/20 08:26 Folic Acid PO 1 mg DAILY HOWIE Administration Gabapentin 300 mg 05/10/20 22:00 05/18/20 14:03 Neurontin PO 300 mg Q8HR HOWIE Administration Hydralazine HCl 50 mg 05/10/20 17:00 05/18/20 08:25 Apresoline Tablet PO 50 mg BIDWM HOWIE Admin
[2020-05-18] MEDS: SIMVASTATIN 20 MG TABLET 40 MG PO (20:32)
[2020-05-19] VITALS (15 sets, daily range): BP systolic 108–114; BP diastolic 56–68; PULSE 72–120; RESP 18–20; TEMP 36.8–37; O2SAT 94–100
[2020-05-19] MEDS: ALBUTEROL SULFATE NEB 2.5 MG/0.5 ML INH INHALATION ×4 (02:27→20:17)
[2020-05-19] MEDS: IPRATROPIUM BR 0.02% INH SOLN 0.5 MG/2.5 ML VIAL INHALATION (02:27)
[2020-05-19] MEDS: GABAPENTIN 300 MG CAPSULE PO ×3 (05:43→20:46)
[2020-05-19] MEDS: CARBIDOPA/LEVODOPA 10/100 MG TABLET 1 TABLET PO ×3 (05:43→20:47)
[2020-05-19] MEDS: PHENYTOIN SODIUM 100 MG CAP PO ×3 (05:43→20:47)
[2020-05-19] MEDS: BRIMONIDINE TARTRATE 0.2% OP SOLN 5 ML BTL 2 DROP EACH EYE ×3 (05:43→20:48)
[2020-05-19] MEDS: FLUTICASONE PROP 110 MCG INHALER 12 GM (*SP) 2 PUFF INHALATION ×2 (07:44→20:18)
[2020-05-19] MEDS: ENOXAPARIN 40 MG/0.4 ML SYRINGE SUB-Q (08:50)
[2020-05-19] MEDS: hydrALAZINE HCL 50 MG TABLET PO ×2 (08:50→17:37)
[2020-05-19] MEDS: SENNA/DOCUSATE SODIUM TABLET 2 TAB PO ×2 (08:50→20:46)
[2020-05-19] MEDS: FINASTERIDE 5 MG TABLET PO (08:50)
[2020-05-19] MEDS: levETIRAcetam 500 MG TABLET 1000 MG PO ×2 (08:51→20:46)
[2020-05-19] MEDS: FOLIC ACID 1 MG TABLET PO (08:51)
[2020-05-19] MEDS: risperiDONE 0.5 MG TABLET PO ×2 (08:51→20:47)
[2020-05-19] MEDS: hydroCHLOROthiazide 12.5 MG CAPSULE PO (08:51)
[2020-05-19] MEDS: LOSARTAN POTASSIUM 100 MG TABLET PO (08:51)
[2020-05-19] MEDS: MEGESTROL ACETATE (*CHEMO) 40 MG TABLET PO ×2 (08:51→20:47)
[2020-05-19] MEDS: TAMSULOSIN HCL 0.4 MG CAPSULE PO (08:52)
[2020-05-19] MEDS: THIAMINE HCL 100 MG TABLET PO (08:52)
--- NOTE | 2020-05-19 16:07 | WPDNEURORHBP ---
Subjective Date/time seen: 05/19/20 16:07 Interval history: this 69-year-old gentleman with residual left-sided spastic hemiparesis for many years is here after program and illness with a cranial in critical illness myopathy is doing fairly well he does not complain of any headache nausea vomiting chest pain shortness of breath fever chills and sore throat making progress overall Review of Systems Review of Systems: All systems reviewed & are unremarkable except as noted in HPI and below Functional Status Ambulation Ability Ability to Ambulate 10 Feet: Contact Guard Ability to Ambulate 50 Feet With 2 Turns: Contact Guard Ambulation Assistive Devices: Walker, Wheeled Transfers Ability Ability to Transfer In/Out of Chair: Minimum Assistance X 1 Exam Const: General: comfortable and no acute distress HENMT: General nose exam: Normal nares present Mouth: Yes moist mucous membranes Eyes: General: appearance normal, both eyes and all related structures Neck: Neck: supple and no JVD Resp: Effort & Inspection: normal respiratory effort Auscultation: clear to auscultation bilaterally Cardio: Rate: regular rate Rhythm: regular rhythm GI: GI Palp: Yes Soft to palpation Auscultation: normal bowel sounds Skin: General skin exam: normal color and no rashes or lesions noted Neuro: Other: patient is awake alert well oriented improving overall in his mental status also as for as the weakness is concerned and making progress Extrem: General: normal to inspection Psych: Mental Status: mental status grossly normal Objective Data Vital Signs Vital Signs: Vital Signs - 24 hr 05/18/20 21:13 05/18/20 21:16 05/18/20 21:23 Temperature Pulse Rate 102 H 102 H 100 Respiratory Rate 20 20 20 Blood Pressure Pulse Oximetry 95 05/18/20 22:00 05/19/20 02:28 05/19/20 02:33 Temperature 37.1 C Pulse Rate 100 89 87 Respiratory Rate 20 20 20 Blood Pressure 104/54 L Pulse Oximetry 100 05/19/20 06:00 05/19/20 07:45 05/19/20 07:46 Temperature 36.8 C Pulse Rate 89 99 Respiratory Rate 20 20 Blood Pressure 112/61 Pulse Oximetry 100 96 05/19/20 07:54 05/19/20 11:10 05/19/20 13:51 Temperature Pulse Rate 95 72 120 H Respiratory Rate 20 20 Blood Pressure Pulse Oximetry 94 05/19/20 14:00 05/19/20 14:02 Temperature 37.0 C Pulse Rate 112 H 104 H Respiratory Rate 20 20 Blood Pressure 108/56 L Pulse Oximetry 99 Intake/Output Intake/Output: Intake & Output 05/16/20 05/17/20 05/18/20 05/19/20 23:59 23:59 23:59 23:59 Intake Total 480 600 480 480 Balance 480 600 480 480 Meds/Results Medications: Active Medications Generic Name Dose Route Start Last Admin Trade Name Freq PRN Reason Stop Dose Admin Albuterol 2 puff 05/10/20 17:09 05/12/20 08:48 Proventil Hfa INHALATION 2 puff BID PRN Administration Shortness Of Breath Or Wheezing Albuterol 2.5 mg 05/12/20 14:00 05/19/20 13:49 Albuterol Sulf Neb 2.5mg/0.5ml INHALATION 2.5 mg Q6HRT HOWIE Administration Brimonidine Tartrate 2 drop 05/10/20 22:00 05/19/20 14:36 Alphagan 0.2% Op Soln EACH EYE 2 drop Q8HR HOWIE Administration Carbidopa/Levodopa 1 tablet 05/16/20 22:00 05/19/20 14:36 Sinemet 10/100 Mg PO 1 tablet Q8HR HOWIE Administration Enoxaparin Sodium 40 mg 05/12/20 09:00 05/19/20 08:50 Lovenox SUB-Q 40 mg DAILY HOWIE Administration Finasteride 5 mg 05/11/20 09:00 05/19/20 08:50 Proscar PO 5 mg DAILY HOWIE Administration Fluticasone Propionate 2 puff 05/10/20 20:00 05/19/20 07:44 Flovent INHALATION 2 puff Q12HRT HOWIE Administration Folic Acid 1 mg 05/11/20 09:00 05/19/20 08:51 Folic Acid PO 1 mg DAILY HOWIE Administration Gabapentin 300 mg 05/10/20 22:00 05/19/20 14:36 Neurontin PO 300 mg Q8HR HOWIE Administration Hydralazine HCl 50 mg 05/10/20 17:00 05/19/20 08:50 Apresoline Tablet PO 50 mg BIDWM HOWIE Administrati
[2020-05-19] MEDS: SIMVASTATIN 20 MG TABLET 40 MG PO (20:48)
[2020-05-20] VITALS (9 sets, daily range): BP systolic 96–112; BP diastolic 58–69; PULSE 96–107; RESP 18–20; TEMP 36.6–36.8; O2SAT 94–100
[2020-05-20] MEDS: ALBUTEROL SULFATE NEB 2.5 MG/0.5 ML INH INHALATION ×3 (02:34→21:07)
[2020-05-20] MEDS: BRIMONIDINE TARTRATE 0.2% OP SOLN 5 ML BTL 2 DROP EACH EYE ×3 (05:59→21:08)
[2020-05-20] MEDS: GABAPENTIN 300 MG CAPSULE PO ×3 (06:00→21:10)
[2020-05-20] MEDS: PHENYTOIN SODIUM 100 MG CAP PO ×3 (06:00→21:10)
[2020-05-20] MEDS: CARBIDOPA/LEVODOPA 10/100 MG TABLET 1 TABLET PO ×3 (06:01→21:10)
--- NOTE | 2020-05-20 07:54 | PC.NURSE ---
called Dr. mallory with BP concern-adjustment made to losartan-changed to 50mtg po daily but starting tomorrow morning and holding dose this morning.
[2020-05-20] MEDS: hydrALAZINE HCL 50 MG TABLET PO ×2 (08:31→17:06)
[2020-05-20] MEDS: ENOXAPARIN 40 MG/0.4 ML SYRINGE SUB-Q (08:31)
[2020-05-20] MEDS: SENNA/DOCUSATE SODIUM TABLET 2 TAB PO ×2 (08:31→21:07)
[2020-05-20] MEDS: hydroCHLOROthiazide 12.5 MG CAPSULE PO (08:32)
[2020-05-20] MEDS: FOLIC ACID 1 MG TABLET PO (08:32)
[2020-05-20] MEDS: levETIRAcetam 500 MG TABLET 1000 MG PO ×2 (08:32→21:07)
[2020-05-20] MEDS: FINASTERIDE 5 MG TABLET PO (08:32)
[2020-05-20] MEDS: MEGESTROL ACETATE (*CHEMO) 40 MG TABLET PO ×2 (08:33→21:07)
[2020-05-20] MEDS: THIAMINE HCL 100 MG TABLET PO (08:33)
[2020-05-20] MEDS: risperiDONE 0.5 MG TABLET PO ×2 (08:33→21:08)
[2020-05-20] MEDS: TAMSULOSIN HCL 0.4 MG CAPSULE PO (08:33)
[2020-05-20] MEDS: FLUTICASONE PROP 110 MCG INHALER 12 GM (*SP) 2 PUFF INHALATION (21:07)
[2020-05-20] MEDS: SIMVASTATIN 20 MG TABLET 40 MG PO (21:08)
[2020-05-21] VITALS (14 sets, daily range): BP systolic 106–127; BP diastolic 70–75; PULSE 94–106; RESP 18–20; TEMP 36.1–36.3; O2SAT 94–98
[2020-05-21] MEDS: ALBUTEROL SULFATE NEB 2.5 MG/0.5 ML INH INHALATION ×4 (02:02→21:46)
[2020-05-21] MEDS: PHENYTOIN SODIUM 100 MG CAP PO ×3 (05:15→21:36)
[2020-05-21] MEDS: GABAPENTIN 300 MG CAPSULE PO ×3 (05:15→21:36)
[2020-05-21] MEDS: CARBIDOPA/LEVODOPA 10/100 MG TABLET 1 TABLET PO ×3 (05:15→21:36)
[2020-05-21] MEDS: BRIMONIDINE TARTRATE 0.2% OP SOLN 5 ML BTL 2 DROP EACH EYE ×3 (05:16→21:38)
[2020-05-21] MEDS: IPRATROPIUM BR 0.02% INH SOLN 0.5 MG/2.5 ML VIAL INHALATION (06:54)
[2020-05-21] MEDS: FLUTICASONE PROP 110 MCG INHALER 12 GM (*SP) 2 PUFF INHALATION ×2 (07:05→21:46)
[2020-05-21] MEDS: hydroCHLOROthiazide 12.5 MG CAPSULE PO (08:33)
[2020-05-21] MEDS: FINASTERIDE 5 MG TABLET PO (08:33)
[2020-05-21] MEDS: SENNA/DOCUSATE SODIUM TABLET 2 TAB PO ×2 (08:33→20:21)
[2020-05-21] MEDS: ENOXAPARIN 40 MG/0.4 ML SYRINGE SUB-Q (08:33)
[2020-05-21] MEDS: FOLIC ACID 1 MG TABLET PO (08:33)
[2020-05-21] MEDS: hydrALAZINE HCL 50 MG TABLET PO ×2 (08:33→17:17)
[2020-05-21] MEDS: risperiDONE 0.5 MG TABLET PO ×2 (08:34→20:22)
[2020-05-21] MEDS: MEGESTROL ACETATE (*CHEMO) 40 MG TABLET PO ×2 (08:34→20:22)
[2020-05-21] MEDS: levETIRAcetam 500 MG TABLET 1000 MG PO ×2 (08:34→20:21)
[2020-05-21] MEDS: LOSARTAN POTASSIUM 50 MG TABLET PO (08:34)
[2020-05-21] MEDS: TAMSULOSIN HCL 0.4 MG CAPSULE PO (08:34)
[2020-05-21] MEDS: THIAMINE HCL 100 MG TABLET PO (08:35)
--- NOTE | 2020-05-21 09:29 | WPDNEURORHBP ---
Subjective Date/time seen: 05/21/20 09:29 spastic left hemiparesis with superimposed CIRM Review of Systems Review of Systems: All systems reviewed & are unremarkable except as noted in HPI and below Functional Status Ambulation Ability Ability to Ambulate 10 Feet: Contact Guard Ability to Ambulate 50 Feet With 2 Turns: Contact Guard Ambulation Assistive Devices: Walker, Wheeled Transfers Ability Ability to Transfer In/Out of Chair: Minimum Assistance X 1 Exam Const: General: cooperative, comfortable and no acute distress Nutritional Appearance: average body habitus Orientation/consciousness: oriented to person and oriented to place HENMT: Ears: hearing grossly normal bilaterally General nose exam: Normal external nose present and No nasal discharge present Face and sinus: normal facial exam Mouth: Yes Normal oral and palatal mucosa present Eyes: General: appearance normal, both eyes and all related structures Neck: Neck: full ROM and no JVD Resp: Effort & Inspection: normal respiratory effort and able to speak in complete sentences Auscultation: clear to auscultation bilaterally Cardio: Rate: regular rate Rhythm: regular rhythm GI: Auscultation: normal bowel sounds Skin: General skin exam: normal color and no rashes or lesions noted Neuro: General: oriented to person, oriented to place and moves all extremities Cranial nerves: Yes CN's II-XII intact bilaterally, Yes Equal, round and reactive pupils present, Yes Bilaterally intact EOM present, Yes Nystagmus not present, Yes Midline tongue present, Yes Symmetric palate elevation present, Yes Normal hearing present, Yes Ability to bilaterally rotate head present and Yes Ability to bilaterally elevate shoulders present Cognition (Neuro): normal cognition Speech: normal speech Gait exam (Neuro): Unable to assess gait Motor exam (neuro): Abnormal motor strength present Sensory Exam: Sensory deficit (Neuro) Deep tendon reflexes (DTR's): Right triceps reflex intensity grade: 0, Left triceps reflex intensity grade: 0, Rt Biceps (C5, C6): 0, Left biceps reflex intensity grade: 0, Right brachioradialis reflex intensity grade: 0, Left brachioradialis reflex intensity grade: 0, Right patellar reflex intensity grade: 0, Left patellar reflex intensity grade: 0, Right ankle reflex intensity grade: 0 and Left ankle reflex intensity grade: 0 Plantar Reflex Responses: downgoing: bilateral Extrem: General: normal to inspection Psych: Speech and movement: Normal speech and movement present Affect: normal affect Attitude: cooperative Thought process: Normal thought process present Thought content: Yes Normal thought content present Insight: Fair insight present (Psych) Judgement: Fair judgement present (Psych) Objective Data Vital Signs Vital Signs: Vital Signs - 24 hr 05/20/20 13:20 05/20/20 14:00 05/20/20 21:08 Temperature 36.8 C Pulse Rate 100 103 H 96 Respiratory Rate 20 20 18 Blood Pressure 112/68 Pulse Oximetry 99 98 05/20/20 21:17 05/20/20 21:30 05/20/20 21:45 Temperature 36.6 C Pulse Rate 97 100 98 Respiratory Rate 18 18 Blood Pressure 111/69 Pulse Oximetry 94 100 05/21/20 02:03 05/21/20 02:10 05/21/20 06:00 Temperature 36.2 C L Pulse Rate 101 H 98 103 H Respiratory Rate 18 18 18 Blood Pressure 127/75 Pulse Oximetry 98 05/21/20 06:56 05/21/20 06:58 05/21/20 07:03 Temperature Pulse Rate 96 98 Respiratory Rate 18 18 Blood Pressure Pulse Oximetry 97 Intake/Output Intake/Output: Intake & Output 05/18/20 05/19/20 05/20/20 05/21/20 23:59 23:59 23:59 23:59 Intake Total 480 720 720 360 Balance 480 720 720 360 Meds/Results Medications: Active Medications Generic Name Dose Route Start Last Admin Trade Name Freq PRN Reason Stop Dose Admin Albuterol 2 puff 05/10/20 17:09 05/12/20 08:48 Proventil Hfa INHALATION 2 puff BID PRN Administration Shortness Of Breath Or Wheezing Albuterol 2.5 mg
[2020-05-21] MEDS: SIMVASTATIN 20 MG TABLET 40 MG PO (20:22)
[2020-05-22] VITALS (18 sets, daily range): BP systolic 115–145; BP diastolic 67–76; PULSE 86–123; RESP 16–24; TEMP 36.1–36.8; O2SAT 86–100
[2020-05-22] MEDS: ALBUTEROL SULFATE NEB 2.5 MG/0.5 ML INH INHALATION ×4 (03:08→21:39)
[2020-05-22] MEDS: PHENYTOIN SODIUM 100 MG CAP PO ×3 (05:30→20:52)
[2020-05-22] MEDS: GABAPENTIN 300 MG CAPSULE PO ×3 (05:32→20:54)
[2020-05-22] MEDS: CARBIDOPA/LEVODOPA 10/100 MG TABLET 1 TABLET PO ×3 (05:32→20:52)
[2020-05-22] MEDS: BRIMONIDINE TARTRATE 0.2% OP SOLN 5 ML BTL 2 DROP EACH EYE ×3 (05:33→20:54)
[2020-05-22] MEDS: FLUTICASONE PROP 110 MCG INHALER 12 GM (*SP) 2 PUFF INHALATION ×2 (08:10→21:39)
[2020-05-22] MEDS: hydrALAZINE HCL 50 MG TABLET PO ×2 (09:00→17:01)
[2020-05-22] MEDS: ENOXAPARIN 40 MG/0.4 ML SYRINGE SUB-Q (09:01)
[2020-05-22] MEDS: SENNA/DOCUSATE SODIUM TABLET 2 TAB PO ×2 (09:01→20:53)
[2020-05-22] MEDS: FOLIC ACID 1 MG TABLET PO (09:02)
[2020-05-22] MEDS: hydroCHLOROthiazide 12.5 MG CAPSULE PO (09:02)
[2020-05-22] MEDS: levETIRAcetam 500 MG TABLET 1000 MG PO ×2 (09:02→20:52)
[2020-05-22] MEDS: FINASTERIDE 5 MG TABLET PO (09:02)
[2020-05-22] MEDS: MEGESTROL ACETATE (*CHEMO) 40 MG TABLET PO ×2 (09:03→20:54)
[2020-05-22] MEDS: risperiDONE 0.5 MG TABLET PO ×2 (09:03→20:54)
[2020-05-22] MEDS: LOSARTAN POTASSIUM 50 MG TABLET PO (09:03)
[2020-05-22] MEDS: THIAMINE HCL 100 MG TABLET PO (09:04)
[2020-05-22] MEDS: TAMSULOSIN HCL 0.4 MG CAPSULE PO (09:04)
--- NOTE | 2020-05-22 10:31 | WPDNEURORHBP ---
Subjective Date/time seen: 05/22/20 10:31 Interval history: this 69-year-old came to us with critical illness myopathy after initially having had the surgery for the hip and later on had complications related to his abdominal and had ileus and for that was the surgery was performed however he is beyond now 1 month and has done well in over rehab he is needing the 2 liters of oxygen however the incisions of the previous surgeries heavy and weak fairly well he denies any headache nausea vomiting chest pain shortness of breath fever chills sore throat Review of Systems Review of Systems: All systems reviewed & are unremarkable except as noted in HPI and below Functional Status Ambulation Ability Ability to Ambulate 10 Feet: Contact Guard Ability to Ambulate 50 Feet With 2 Turns: Contact Guard Ambulation Assistive Devices: Walker, Wheeled Transfers Ability Ability to Transfer In/Out of Chair: Minimum Assistance X 1 Exam Const: General: comfortable and no acute distress HENMT: General nose exam: Normal nares present Mouth: Yes moist mucous membranes Eyes: General: appearance normal, both eyes and all related structures Neck: Neck: supple and no JVD Other: no carotid bruits noted or heard Resp: Effort & Inspection: normal respiratory effort Auscultation: clear to auscultation bilaterally Cardio: Rate: regular rate Rhythm: regular rhythm GI: GI Palp: Yes Soft to palpation Auscultation: normal bowel sounds Skin: General skin exam: normal color and no rashes or lesions noted Neuro: Other: patient is awake alert oriented x3 mild cognitive deficit follows all commands quite well his even left-sided hemiparesis which he has had from the stroke is much better and he has done well any over rehab and to be discharged tomorrow with home health Extrem: General: normal to inspection Psych: Other: [id number] short-term memory deficit from the psych standpoint is stable and cooperative Objective Data Vital Signs Vital Signs: Vital Signs - 24 hr 05/21/20 14:00 05/21/20 14:40 05/21/20 14:48 Temperature 36.3 C L Pulse Rate 106 H 94 95 Respiratory Rate 20 18 18 Blood Pressure 106/75 Pulse Oximetry 97 05/21/20 21:40 05/21/20 21:48 05/21/20 21:49 Temperature Pulse Rate 106 H 106 H Respiratory Rate 18 18 Blood Pressure Pulse Oximetry 97 05/21/20 22:00 05/22/20 03:05 05/22/20 03:09 Temperature 36.1 C L Pulse Rate 96 101 H 101 H Respiratory Rate 20 18 18 Blood Pressure 110/70 Pulse Oximetry 98 05/22/20 05:58 05/22/20 08:10 05/22/20 08:14 Temperature 36.1 C L Pulse Rate 86 100 Respiratory Rate 16 18 Blood Pressure 115/67 Pulse Oximetry 100 97 05/22/20 08:16 Temperature Pulse Rate 100 Respiratory Rate 18 Blood Pressure Pulse Oximetry Intake/Output Intake/Output: Intake & Output 05/19/20 05/20/20 05/21/20 05/22/20 23:59 23:59 23:59 23:59 Intake Total 720 720 840 Balance 720 720 840 Meds/Results Medications: Active Medications Generic Name Dose Route Start Last Admin Trade Name Freq PRN Reason Stop Dose Admin Albuterol 2 puff 05/10/20 17:09 05/12/20 08:48 Proventil Hfa INHALATION 2 puff BID PRN Administration Shortness Of Breath Or Wheezing Albuterol 2.5 mg 05/12/20 14:00 05/22/20 08:10 Albuterol Sulf Neb 2.5mg/0.5ml INHALATION 2.5 mg Q6HRT HOWIE Administration Brimonidine Tartrate 2 drop 05/10/20 22:00 05/22/20 05:33 Alphagan 0.2% Op Soln EACH EYE 2 drop Q8HR HOWIE Administration Carbidopa/Levodopa 1 tablet 05/16/20 22:00 05/22/20 05:32 Sinemet 10/100 Mg PO 1 tablet Q8HR HOWIE Administration Enoxaparin Sodium 40 mg 05/12/20 09:00 05/22/20 09:01 Lovenox SUB-Q 40 mg DAILY HOWIE Administration Finasteride 5 mg 05/11/20 09:00 05/22/20 09:02 Proscar PO 5 mg DAILY HOWIE Administration Fluticasone Propionate 2 puff 05/10/20 20:00 05/22/20 08:10 Flovent INHALATION 2 puff
--- NOTE | 2020-05-22 12:54 | PCNFU ---
Nutrition Follow-Up Complete: Involuntary weight loss related to multiple medical issues/previous hospitalization with associated poor appetite as evidenced by reported weight loss of uncertain amount. Goal: Patient to consume 75% of meals/supplements or greater. Patient is progressing towards goal at 48% average meal consumption. Pt current nutrition is regular. Nutrition recommendation: Agree with current recommendations. Recommend continuing Enlive PRN Last recorded weight is 64.3 kg. Bowel Motility: last bowel movement reported on 05/21/20 Labs Reviewed: Hgb (10.1) Hct (32.3) Meds Noted: albuterol, vitamin B-12, Folic acid, HCT2, megace-40 mg BID, Dilantin TID, vitamin B-1, lovenox, senokot, zocar, milk of magnesia Additional Notes: Patient reports time between meals is to quick. States he does not become hungry until later and often does not want to eat meals at meal time due to feeling full. Enjoys fruit cup and chocolate ice cream but reports that it sends him to the bathroom. Encouraged patient to eat smaller amounts of item to determine tolerance to these foods and keep patient out of bathroom. States he is enjoying the Ensure and prefers to drink them at night. Follow up every 5 days.
--- NOTE | 2020-05-22 13:25 | PCNSR ---
On 05/22/20, the student, Aaron Marmolejo, provided care and [facility]. I have reviewed the student's documentation and agree with the findings.
--- NOTE | 2020-05-22 14:51 | HOMEO2EVAL ---
Home Oxygen Evaluation RC: Home Oxygen (O2) Evaluation Start: 05/21/20 17:19 Freq: ONCE Status: Active Protocol: RPE Activity Type Activity Date Activity User E-Sign Co-Sign Detail Recorded Client Recorded Date Recorded By Document 05/22/20 14:20 CAROL ANN [id number] 05/22/20 14:49 CAROL ANN Document 05/22/20 14:25 CAROL ANN [email or web address] 05/22/20 14:49 CAROL ANN Document 05/22/20 14:28 CAROL ANN [email or web address] 05/22/20 14:49 CAROL ANN Document 05/22/20 14:35 CAROL ANN [email or web address] 05/22/20 14:49 CAROL ANN 05/22/20 05/22/20 05/22/20 14:20 14:25 14:28 Home O2 Evaluation Test Phase Resting Exercise Exercise Oxygen Delivery Room Air Room Air Nasal Cannula Oxygen Flow Rate (L/min) 1 Pulse Oximetry (90-100 %) 94 86 L 92 Home Oxygen Evaluation Comments Treatment Charges O2 Evaluation 05/22/20 14:35 Home O2 Evaluation Test Phase Resting Oxygen Delivery Room Air Oxygen Flow Rate (L/min) Pulse Oximetry (90-100 %) 94 Home Oxygen Evaluation Comments Pt requires 1L home O2 with activity Treatment Charges
--- NOTE | 2020-05-22 15:23 | PCRCNOTE ---
HOME O2 EVAL DONE, PATIENT REQUIRES 1 L O2 WITH ACTIVITY. DME IS [facility]. TANK WILL BE DROPPED OFF IN ROOM FOR DISCHARGE HOME. PT FAMILY TO CALL [facility] UPON ARRIVAL HOME FOR ALL OTHER HOME O2 EQUIPMENT DELIVERY.
[2020-05-22] MEDS: SIMVASTATIN 20 MG TABLET 40 MG PO (20:53)
[2020-05-22] MEDS: IPRATROPIUM BR 0.02% INH SOLN 0.5 MG/2.5 ML VIAL INHALATION (21:39)
[2020-05-23] VITALS (7 sets, daily range): BP systolic 93–126; BP diastolic 66–81; PULSE 86–103; RESP 18–24; TEMP 36.4–36.8; O2SAT 92–100
[2020-05-23] MEDS: PHENYTOIN SODIUM 100 MG CAP PO ×2 (05:15→14:03)
[2020-05-23] MEDS: BRIMONIDINE TARTRATE 0.2% OP SOLN 5 ML BTL 2 DROP EACH EYE ×2 (05:15→14:03)
[2020-05-23] MEDS: GABAPENTIN 300 MG CAPSULE PO ×2 (05:15→14:03)
[2020-05-23] MEDS: CARBIDOPA/LEVODOPA 10/100 MG TABLET 1 TABLET PO ×2 (05:15→14:03)
--- NOTE | 2020-05-23 05:29 | PCRCNOTE ---
Window of time for administration has passed. See next scheduled administration.
[2020-05-23] MEDS: ALBUTEROL SULFATE NEB 2.5 MG/0.5 ML INH INHALATION ×2 (07:49→14:28)
[2020-05-23] MEDS: FLUTICASONE PROP 110 MCG INHALER 12 GM (*SP) 2 PUFF INHALATION (07:49)
[2020-05-23] MEDS: ENOXAPARIN 40 MG/0.4 ML SYRINGE SUB-Q (08:15)
[2020-05-23] MEDS: MEGESTROL ACETATE (*CHEMO) 40 MG TABLET PO (08:16)
[2020-05-23] MEDS: TAMSULOSIN HCL 0.4 MG CAPSULE PO (08:16)
[2020-05-23] MEDS: risperiDONE 0.5 MG TABLET PO (08:17)
[2020-05-23] MEDS: THIAMINE HCL 100 MG TABLET PO (08:17)
[2020-05-23] MEDS: FINASTERIDE 5 MG TABLET PO (08:17)
[2020-05-23] MEDS: levETIRAcetam 500 MG TABLET 1000 MG PO (08:17)
[2020-05-23] MEDS: hydroCHLOROthiazide 12.5 MG CAPSULE PO (08:17)
[2020-05-23] MEDS: hydrALAZINE HCL 50 MG TABLET PO (08:18)
[2020-05-23] MEDS: SENNA/DOCUSATE SODIUM TABLET 2 TAB PO (08:18)
[2020-05-23] MEDS: LOSARTAN POTASSIUM 50 MG TABLET PO (08:18)
[2020-05-23] MEDS: FOLIC ACID 1 MG TABLET PO (08:18)
--- NOTE | 2020-05-23 12:37 | PC.NURSE ---
Abdomen incision healed and open to air. no drainage or redness noted.
--- NOTE | 2020-05-23 13:20 | WPDNEURORHBP ---
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 he does not have any new specific complaints and his general physical examination and neurological examination is much improved comparing to the examination performed in the previous days Review of Systems Review of Systems: All systems reviewed & are unremarkable except as noted in HPI and below Functional Status Ambulation Ability Ability to Ambulate 10 Feet: Contact Guard Ability to Ambulate 50 Feet With 2 Turns: Contact Guard Ambulation Assistive Devices: Walker, Wheeled Transfers Ability Ability to Transfer In/Out of Chair: Minimum Assistance X 1 Exam Const: General: comfortable and no acute distress HENMT: General nose exam: Normal nares present Mouth: Yes moist mucous membranes Eyes: General: appearance normal, both eyes and all related structures Neck: Neck: supple and no JVD Resp: Effort & Inspection: normal respiratory effort Auscultation: clear to auscultation bilaterally Cardio: Rate: regular rate Rhythm: regular rhythm GI: GI Palp: Yes Soft to palpation Auscultation: normal bowel sounds Skin: General skin exam: normal color and no rashes or lesions noted Neuro: Other: patient is awake alert follows all commands in much better shape with the 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 improved and definitely much better compared to when we received him with diagnosis of critical illness myopathy Extrem: General: normal to inspection Psych: Mental Status: mental status grossly normal Objective Data Vital Signs Vital Signs: Vital Signs - 24 hr 05/22/20 13:30 05/22/20 13:58 05/22/20 14:00 Temperature 36.8 C Pulse Rate 97 106 H Respiratory Rate 18 20 Blood Pressure 121/74 Pulse Oximetry 90 98 05/22/20 14:04 05/22/20 14:20 05/22/20 14:25 Temperature Pulse Rate 107 H Respiratory Rate 18 Blood Pressure Pulse Oximetry 94 86 L 05/22/20 14:28 05/22/20 14:35 05/22/20 21:40 Temperature Pulse Rate 123 H Respiratory Rate 24 H Blood Pressure Pulse Oximetry 92 94 05/22/20 21:48 05/22/20 21:55 05/22/20 22:00 Temperature 36.8 C Pulse Rate 118 H 109 H 103 H Respiratory Rate 20 20 Blood Pressure 145/76 H Pulse Oximetry 93 93 05/23/20 06:00 05/23/20 07:52 05/23/20 08:00 Temperature 36.4 C Pulse Rate 103 H 100 95 Respiratory Rate 18 24 H 20 Blood Pressure 126/81 Pulse Oximetry 93 92 92 05/23/20 08:01 Temperature Pulse Rate 95 Respiratory Rate 20 Blood Pressure Pulse Oximetry Intake/Output Intake/Output: Intake & Output 05/20/20 05/21/20 05/22/20 05/23/20 23:59 23:59 23:59 23:59 Intake Total 720 152 391 5145 Balance 720 961 [id number] Meds/Results Medications: Active Medications Generic Name Dose Route Start Last Admin Trade Name Freq PRN Reason Stop Dose Admin Albuterol 2 puff 05/10/20 17:09 05/12/20 08:48 Proventil Hfa INHALATION 2 puff BID PRN Administration Shortness Of Breath Or Wheezing Albuterol 2.5 mg 05/12/20 14:00 05/23/20 07:49 Albuterol Sulf Neb 2.5mg/0.5ml INHALATION 2.5 mg Q6HRT HOWIE Administration Brimonidine Tartrate 2 drop 05/10/20 22:00 05/23/20 05:15 Alphagan 0.2% Op Soln EACH EYE 2 drop Q8HR HOWIE Administration Carbidopa/Levodopa 1 tablet 05/16/20 22:00 05/23/20 05:15 Sinemet 10/100 Mg PO 1 tablet Q8HR HOWIE Administration Enoxaparin Sodium 40 mg 05/12/20 09:00 05/23/20 08:15 Lovenox SUB-Q 40 mg DAILY HOWIE Administration Finasteride 5 mg 05/11/20 09:00 05/23/20 08:17 Proscar PO 5 mg DAILY HOWIE Administration Fluticasone Propionate 2 puff 05/10/20 20:00 05/23/20 07:49 Flovent INHALATION 2 puff Q12HRT HOWIE Administration Folic Acid 1 mg 05/11/20 09:00 05/23/20 08:18 Folic Acid PO 1 mg DAILY HOWIE Administration Gabapentin 300 mg 05/10/20 22:00 05/23/20
--- NOTE | 2020-05-23 17:04 | PC.NURSE ---
Advised by Dr. Julian because of decreased blood pressure to hold 1700 dose of Apresoline.
--- NOTE | 2020-05-26 03:17 | DS_ITS ---
DATE OF DISCHARGE: 05/23/2020 DISCHARGE DIAGNOSES: Primary rehab impairment category of neurological condition with critical illness myopathy of severe degree. DISCHARGE ACTIVE COMORBID CONDITIONS: Atrial fibrillation, hyperlipidemia, hypertension, chronic obstructive pulmonary disease, stroke with residual left-sided weakness, seizure disorder, anxiety. REASON FOR ADMISSION: 69 years old, left-handed male, was admitted to the rehab floor with ongoing diagnosis as mentioned above. He initially presented to [facility] on 04/11/2020, after slipping and falling out of the bed without becoming unconscious, but evaluation documenting left femur neck fracture for which he was admitted to the service of the Orthopedic, underwent left proximal femur hemiarthroplasty on 04/12/2020. Postoperatively, developed respiratory distress, mental status changes, leukocytosis, acute renal failure, hyponatremia, pneumonia, and postoperative ileus with worsening abdominal distention. He was moved to ICU for 7 days and was placed on a ventilator for 3 days. GI were consulted and ordered a CT of the head and CT of the abdomen with IV contract. An NG tube was placed. Repeat CT scan revealed persistent ileus and patient's white count started to rise. He was placed on antibiotics. Ileus eventually converted to small bowel obstruction for which General Surgery was consulted. He underwent exploratory laparotomy on 04/19/2020, with lysis of adhesion, placed on TPN and diet was advanced slowly. He was tolerating regular diet with oral liquids by the time he came to the rehab floor. Pulmonology was also consulted for the acute respiratory failure in the setting of his stage IV COPD, currently saturating at 95% on 2 L of nasal cannula and is on treatment every 6 hours, with his incentive spirometry every hour while awake. He completed antibiotic for pneumonia which is resolved. He is stable from the Pulmonology point of view. Nephrology was consulted for the acute renal failure and was resolved by 05/04/2020. The patient has been slow to recover from critical illness, but was making progress and was requiring significant PT and OT and speech and language evaluation to return to the prior level of independent functioning. His mental status continued to improve and he was alert and awake x3. The patient was discharged to rehab on Lovenox for DVT prophylaxis. He had no exposure. No travel to COVID places. Therapy was initiated at the acute care facility and patient was transferred to us on 05/10/2020. LEVEL OF FUNCTION AT THE TIME OF ADMISSION: Patient required setup for eating, partial assistance for oral hygiene, substantial assistance for toileting, bathing, supervision for upper body dressing, dependent for lower body, footwear, partial assistance for rolling in bed, substantial assistance for sit to lying, lying to sit, sit to stand, chair transfer. He was dependent for toilet transfer. He was unable to car transfer. He was dependent for walking 10 feet, was unable to walk 50 feet with 2 turns, walking 150 feet, 10 feet on uneven surfaces, curb or step, 4 steps, 12 steps. He was dependent for the picking up objects. He required partial assistance for wheelchair 50 feet and he was unable to wheelchair 150 feet. ANTICIPATED REHAB GOALS: To make him independent in eating, oral hygiene, toileting, supervision for bathing, setup for upper body dressing, supervision for lower body dressing, footwear, independent for rolling in bed, sit to lying, lying to sit, supervision for sit to stand, chair transfer, toilet transfer, car transfer, independent for walking 10 feet, 50 feet with 2 turns, partial assistance for 150 feet, independent for 10 feet on uneven surfaces, partial assistance for curb or step, supervision for picking up
== END 2020-05-23 18:08 | disposition home health service (06) | DRG 92 ==
PROVIDERS: Admitting Provider Psychiatry & Neurology Neurology; PCP Internal Medicine; Visit Provider Psychiatry & Neurology Neurology
DX: G72.81 Critical illness myopathy (principal); I69.352 Hemiplegia and hemiparesis following cerebral infarction affecting left dominant side; G20 Parkinson's disease; E78.5 Hyperlipidemia, unspecified; G40.909 Epilepsy, unspecified, not intractable, without status epilepticus; H91.90 Unspecified hearing loss, unspecified ear; I10 Essential (primary) hypertension; I48.91 Unspecified atrial fibrillation; J44.9 Chronic obstructive pulmonary disease, unspecified; Z87.891 Personal history of nicotine dependence; Z96.642 Presence of left artificial hip joint; W06.XXXD Fall from bed, subsequent encounter; Z48.815 Encounter for surgical aftercare following surgery on the digestive system
CPT/HCPCS: 36415; 80048; 85025; 92507; 92523; 94618; 94640; 97110; 97116; 97129; 97130; 97162; 97166; 97530; 97535; 97542; A9270; J1650; J3420